=== PATIENT | female | born 1980 | race Caucasian/White ===

== ENCOUNTER 2017-09-11 19:37 | Inpatient (IN) | payer BC, OTHER ==
[~2017-09-11] VITALS: Ht 157.5 cm; Wt 82.9 kg
[2017-09-11 20:07] VITALS: Ht 157.5 cm; Wt 82.9 kg
[2017-09-11] MEDS ORDERED: OXYTOCIN 30 UNITS/LR 500 ML IV SCH (21:00)
[2017-09-11] MEDS ORDERED: OXYTOCIN 30 UNITS/LR 500 ML IV PRN (21:00)
[2017-09-11] MEDS ORDERED: METHYLERGONOVINE 0.2 MG INJ IM PRN (21:00)
[2017-09-11] MEDS ORDERED: CEFAZOLIN 2 GM/50 ML (PMX) 50 ML IV SCH (21:00)
[2017-09-11] MEDS ORDERED: CARBOPROST 250 MCG INJ IM PRN (21:00)
[2017-09-11] MEDS ORDERED: MISOPROSTOL 200 MCG TAB PR PRN (21:00)
--- NOTE | 2017-09-11 21:04 | RADRPT ---
PROCEDURE: US OB. CLINICAL INDICATION: Uncertain size and dates. TECHNIQUE: Multiple sonographic images of the uterus were obtained. The images were revi ewed on a PACS workstation. COMPARISON: No prior studies are available for comparison. FINDINGS: There is a single live intrauterine gestation. heart rate is 141 beats per minute. Measurements were made in order to determine age. The results are as follows: BPD = 8.76 cm. HC = 31.81 cm. AC = 31.34 cm. FL = 6.84 cm. Estimated weight is 2643 +/- 397 grams. LMP growth percentile is 3.5 %. Menstrual age by ultrasound dates is 35 weeks 3 days. The estimated date of delivery is 10/13/2017. Position is cephalic and placenta is posterior grade II. There is no evidence for an abruption or pl acenta previa. IMPRESSION: 1. Single live intrauterine gestation of 35 weeks 3 days menstrual age by ultrasound dates. 2. The estimated date of delivery is 10/13/2017. RPTAT: QQ .Bhanu Nelson MD, Date Time Electronically viewed and signed by .Bhanu Nelson MD, on 09/11/2017 21:04 .R/
--- NOTE | 2017-09-11 21:05 | RADRPT ---
PROCEDURE: US biophysical profile. CLINICAL INDICATION: Decreased motion. TECHNIQUE: Multiple sonographic images of the uterus were obtained. The images were revi ewed on a PACS workstation. COMPARISON: No prior studies are available for comparison. FINDINGS: There is a single live intrauterine gestation. heart rate is 136 beats per minute. The position is cephalic. The placenta is posterior grade II with no abruption or previa. The CORY is 6.3 cm. (Normal = 5-20 cm.) Breathing Movement: 2 Gross Body Movement: 2 Tone: 2 Qualitative Amniotic Fluid Volume: 2 TOTAL: 8 IMPRESSION: 1. The biophysical score is 8/8. RPTAT: QQ .Bhanu Nelson MD, MD Date Time Electronically viewed and signed by .Bhanu Nelson MD, on 09/11/2017 21:04 .R/
[2017-09-11 21:10] LABS: BASOPHILS % 0.3 % (0.0-2.0); EOSINOPHILS # 0.2 10^3/ul (0.0-0.5); EOSINOPHILS % 1.6 % (0.0-7.0); HEMATOCRIT 36.3 % (37.0-47.0); HEMOGLOBIN 12.6 g/dl (12.0-16.0); LYMPHOCYTES # 2.6 10^3/ul (0.8-2.9); LYMPHOCYTES % 22.5 % (15.0-51.0); MEAN CORPUSCULAR HEMOGLOBIN 28.4 pg (29.0-33.0); MEAN CORPUSCULAR HGB CONC 34.7 g/dl (32.0-37.0); MEAN CORPUSCULAR VOLUME 81.8 fl (82.0-101.0); MEAN PLATELET VOLUME 10.9 fl (7.4-10.4); MONOCYTES % 8.3 % (0.0-11.0); NEUTROPHIL # 7.8 10^3/ul (1.6-7.5); PLATELET COUNT 204 10^3/UL (140-415); RED BLOOD COUNT 4.44 10^6/ul (4.20-5.40); RED CELL DISTRIBUTION WIDTH 12.7 % (11.5-14.5); WHITE BLOOD COUNT 11.6 10^3/ul (4.8-10.8)
[2017-09-11 21:14] LABS: ADD UMIC YES; UR ASCORBIC ACID 40 mg/dL (NEGATIVE); UR BILIRUBIN (Dip) NEGATIVE (NEGATIVE); UR BLOOD (Dip) NEGATIVE (NEGATIVE); UR CLARITY SLIGHTLY CLOUDY (CLEAR); UR COLOR YELLOW (YELLOW); UR GLUCOSE (Dip) NEGATIVE (NEGATIVE); UR KETONES (Dip) NEGATIVE (NEGATIVE); UR LEUKOCYTE ESTERASE (Dip) 2+ Leu/ul (NEGATIVE); UR NITRITE (Dip) NEGATIVE (NEGATIVE); UR RBC 1 /HPF (0-5); UR SPECIFIC GRAVITY (Dip) 1.015 (1.003-1.030); UR SQUAMOUS EPITHELIAL CELL FEW /HPF (FEW); UR TOTAL PROTEIN (Dip) 2+ mg/dl (NEGATIVE); UR UROBILINOGEN (Dip) NEGATIVE (NEGATIVE)
[2017-09-11 21:28] LABS: INR 0.92; PROTIME 12.4 Sec (12.2-14.2)
[2017-09-11 21:29] LABS: PARTIAL THROMBOPLASTIN TIME 29.2 Sec (25.0-35.0)
[2017-09-11 21:32] LABS: ALBUMIN 3.2 g/dl (3.3-4.9); ALBUMIN/GLOBULIN RATIO 0.96; BILIRUBIN,INDIRECT 0.2 mg/dl (0-1.1); BILIRUBIN,TOTAL 0.2 mg/dl (0.2-1.3); CALCIUM 9.2 mg/dl (8.4-10.2); CREATININE 0.75 mg/dl (0.44-1.00); POTASSIUM 3.9 mmol/L (3.5-5.1); TOTAL PROTEIN 6.5 g/dl (6.1-8.1); URIC ACID 5.1 mg/dl (3.1-7.9)
[2017-09-11] MEDS: LACTATED RINGER'S 1,000 ML IV SCH (21:53)
--- NOTE | 2017-09-11 22:01 | TRIAGE ---
OB Triage Datetime Report Generated by CPN: 09/11/2017 22:00 Datetime: 09/11/2017 21:14 Vaginal Exam Membrane Status: Intact Datetime: 09/11/2017 20:09 Stage of : OB Triage Assessment Type: Triage Maternal Assessment Level of Consciousness: Fully Conscious DTR's/Clonus: DTRs 2+; No Clonus Headache: Denies Blurred Vision: No Respiratory Effort: Unlabored; Regular Rhythm; Equal Expansion Breath Sounds, Left: Clear and Equal Breath Sounds, Right: Clear and Equal Nausea/Vomiting: Denies RUQ Epigastric Pain: Denies Lower Extremities Edema: None Degree: None Upper Extremities Edema: None Degree: None Facial Edema: None Temperature Route: Oral Fall Risk Assessment History of Falling: (0) No Secondary Diagnosis: (0) No Ambulatory Aid: (0) Bedrest/Nurse Assist IV Therapy: (0) No Gait: (0) Normal/Bedrest/Immobile Mental Status: (0) Oriented to Own Ability Fall Score: 0 Fall Risk Score Definition: No Risk: No action required Labor Evaluation Monitor Mode: External Contraction Comments: No contractions at this time Heart Rate FHR Baseline Rate: 125 Monitor Mode: External US Variability: Moderate 6-25 bpm Accelerations: 15X15 Decelerations: None Category: Category I Pain Assessment Pain Scale: 0 Pain Presence: None/Denies Pain Type: N/A Pain Relief Measures: Comfort Measures Datetime: 09/11/2017 20:08 Time of Arrival: 09/11/2017 19:25 EGA: 39.0 Arrived By: Ambulatory Arrived From: Home Movement: Present Contractions: Denies/Absent Rupture of Membranes: Denies Vaginal Bleeding: None Vaginal Discharge: Denies Recent Sexual Intercouse: Denies Abdominal Trauma: Not Applicable Patient Complaints: None Time Provider Notified: 09/11/2017 20:25 Provider Notified: DAMASO Initial Plan: NST, CORY, EFW, EFA
[2017-09-11] MEDS ORDERED: MAGNESIUM SULFATE 4 GM/100 ML 100 ML ONE (22:20)
[2017-09-11] MEDS ORDERED: MAGNESIUM SULFATE 20 GM/500 ML 500 ML IV ONE (22:20)
[2017-09-11] MEDS ORDERED: MAGNESIUM SULFATE 4 GM/100 ML 100 ML IVPB ONE (22:30)
[2017-09-11] MEDS: MAGNESIUM SULFATE 20 GM/500 ML 500 ML IV SCH (23:18)
[2017-09-12] MEDS: LACTATED RINGER'S 1,000 ML IV SCH ×5 (06:49→22:02)
[2017-09-12] MEDS ORDERED: ACETAMINOPHEN 325 MG TAB PO PRN (07:00)
[2017-09-12] MEDS: MAGNESIUM SULFATE 20 GM/500 ML 500 ML IV SCH ×2 (09:38→21:11)
[2017-09-12] MEDS ORDERED: morphine SULFATE/PF (10 MG/10 ML) INJ ONE (12:00)
[2017-09-12] MEDS ORDERED: FENTAnyl 50 MCG/ML VIAL ONE (12:00)
[2017-09-12] MEDS ORDERED: ONDANSETRON 4 MG INJ ONE (12:05)
[2017-09-12] MEDS ORDERED: DEXAMETHASONE 4 MG/ML 1 ML INJ ONE (12:05)
[2017-09-12] MEDS ORDERED: PHENYLephrine (100 MCG/ML) 5ML SYG ONE (12:15)
--- NOTE | 2017-09-12 14:02 | SIPON ---
Date/Time of Note Date/Time of Note DATE: 09/12/17 TIME: 13:59 Operative Report Preoperative Diagnosis 39 WEEKS IUP PREVIOUS CSECTION INDUCED HYPERTENSION MULTIPARITY PATIENT DESIRES BTL Postoperative Diagnosis 39 WEEKS IUP PREVIOUS CSECTION INDUCED HYPERTENSION MULTIPARITY PATIENT DESIRES BTL Operation/Procedure Performed REPEAT LOW TRANSVERSE SECTION Surgeon see signature line orthodontic technician assistant DR ALEXANDER Anesthesia: spinal Estimated blood loss: other Transfusion Required none Specimen PLACENTA PORTION OF BOTH TUBES Grafts/Implants none Complications none VISH PETIT MD Sep 12, 2017 14:02
[2017-09-12] MEDS ORDERED: MISOPROSTOL 200 MCG TAB PR PRN (14:30)
[2017-09-12] MEDS ORDERED: CEFAZOLIN 1 GM/50 ML (PMX) 50 ML IV ONE (14:30)
[2017-09-12] MEDS ORDERED: METHYLERGONOVINE 0.2 MG TAB PO PRN (14:30)
[2017-09-12] MEDS ORDERED: LANOLIN 7 GM TUBE TOP PRN (14:30)
[2017-09-12] MEDS ORDERED: CARBOPROST 250 MCG INJ IM PRN (14:30)
[2017-09-12] MEDS ORDERED: OXYTOCIN 30 UNITS/LR 500 ML IV PRN (14:30)
[2017-09-12] MEDS ORDERED: METHYLERGONOVINE 0.2 MG INJ IM PRN (14:30)
[2017-09-12] MEDS ORDERED: HYDROCODONE/APAP (5/325) TAB PO PRN (14:30)
[2017-09-12] MEDS ORDERED: OXYCODONE/ACETAMINOPHEN (5/325) TAB PO PRN (14:30)
[2017-09-12] MEDS ORDERED: NALOXONE (0.4 MG/ML) INJ IV PRN (15:00)
[2017-09-12] MEDS ORDERED: morphine 2 MG INJ IV PRN (15:00)
[2017-09-12] MEDS ORDERED: ONDANSETRON 4 MG INJ IV PRN (15:00)
[2017-09-12] MEDS ORDERED: DIPHENHYDRAMINE 50 MG INJ IV PRN (15:00)
[2017-09-12] MEDS ORDERED: KETOROLAC 30 MG INJ IV PRN (15:00)
[2017-09-12] MEDS ORDERED: ZOLPIDEM 5 MG TAB PO PRN (15:00)
[2017-09-12] MEDS ORDERED: morphine 4 MG/ML VIAL IV PRN (15:00)
[2017-09-12] MEDS ORDERED: MAGNESIUM SULFATE 2 GM/50 ML 50 ML IVPB SCH (15:00)
[2017-09-12] MEDS: OXYTOCIN 30 UNITS/LR 500 ML IV SCH ×2 (18:15→21:10)
[2017-09-12 18:22] VITALS: BP 125/77; PULSE 58; RESP 16
[2017-09-12 19:30] VITALS: BP 126/79; PULSE 63; RESP 18
[2017-09-12 20:30] VITALS: BP 119/75; RESP 20
[2017-09-12] MEDS: SENNA/DOCUSATE NA (8.6MG/50MG) TAB PO SCH (21:00)
[2017-09-12 21:30] VITALS: BP 121/72; PULSE 57; RESP 18
[2017-09-12 22:30] VITALS: BP 112/70; RESP 18
[2017-09-12 23:30] VITALS: BP 109/68; RESP 18
[2017-09-13] MEDS: LACTATED RINGER'S 1,000 ML IV SCH ×2 (02:04→06:02)
[2017-09-13 04:05] VITALS: BP 108/66; PULSE 66; RESP 18
[2017-09-13] MEDS: SENNA/DOCUSATE NA (8.6MG/50MG) TAB PO SCH ×2 (08:09→21:48)
[2017-09-13 08:24] VITALS: BP 100/68; PULSE 57; RESP 16
[2017-09-13 08:24] LABS: BASOPHILS % 0.2 % (0.0-2.0); HEMATOCRIT 33.3 % (37.0-47.0); HEMOGLOBIN 11.3 g/dl (12.0-16.0); LYMPHOCYTES # 1.9 10^3/ul (0.8-2.9); LYMPHOCYTES % 12.4 % (15.0-51.0); MEAN CORPUSCULAR HEMOGLOBIN 28.1 pg (29.0-33.0); MEAN CORPUSCULAR HGB CONC 33.9 g/dl (32.0-37.0); MEAN CORPUSCULAR VOLUME 82.8 fl (82.0-101.0); MEAN PLATELET VOLUME 11.1 fl (7.4-10.4); MONOCYTE # 0.9 10^3/ul (0.3-0.9); MONOCYTES % 5.6 % (0.0-11.0); NEUTROPHIL # 12.8 10^3/ul (1.6-7.5); NEUTROPHILS % 81.4 % (39.0-77.0); PLATELET COUNT 199 10^3/UL (140-415); RED BLOOD COUNT 4.02 10^6/ul (4.20-5.40); RED CELL DISTRIBUTION WIDTH 12.7 % (11.5-14.5); WHITE BLOOD COUNT 15.7 10^3/ul (4.8-10.8)
[2017-09-13 08:46] LABS: CALCIUM 6.9 mg/dl (8.4-10.2); CREATININE 0.84 mg/dl (0.44-1.00); POTASSIUM 4.6 mmol/L (3.5-5.1)
[2017-09-13 12:40] VITALS: BP 113/70; PULSE 57; RESP 16
[2017-09-13] MEDS ORDERED: BISACODYL 10 MG SUPP PR ONE (17:00)
[2017-09-13] MEDS ORDERED: MAGNESIUM HYDROXIDE 30ML CUP PO ONE (17:00)
[2017-09-13] MEDS: IBUPROFEN 800 MG TAB PO SCH (18:42)
[2017-09-13 20:00] VITALS: BP 110/62; PULSE 70; RESP 20
[2017-09-13] MEDS: HYDROCODONE/APAP (5/325) TAB PO PRN (21:48)
[2017-09-14 05:02] VITALS: BP 121/77; PULSE 75; RESP 20
[2017-09-14] MEDS: IBUPROFEN 800 MG TAB PO SCH ×3 (05:27→21:33)
[2017-09-14] MEDS: HYDROCODONE/APAP (5/325) TAB PO PRN ×2 (05:28→19:58)
[2017-09-14 08:50] VITALS: BP 129/72; PULSE 52; RESP 14
[2017-09-14] MEDS: SENNA/DOCUSATE NA (8.6MG/50MG) TAB PO SCH ×2 (09:23→21:33)
[2017-09-14 12:23] VITALS: BP 134/84; PULSE 53; RESP 16
[2017-09-14 16:06] VITALS: BP 131/78; PULSE 50; RESP 16
[2017-09-14 19:59] VITALS: BP 135/83; PULSE 55; RESP 18
[2017-09-15 04:00] VITALS: BP 130/77; PULSE 50; RESP 17
[2017-09-15] MEDS: IBUPROFEN 800 MG TAB PO SCH (05:40)
[2017-09-15 07:30] VITALS: BP 131/75; PULSE 67; RESP 19
[2017-09-15] MEDS ORDERED: MEASLES,MUMPS,RUBELLA VACCINE INJ SC* ONE (09:00)
[2017-09-15] MEDS ORDERED: DIPHTH/TET/ACEL PERTUSS (ADULT) 0.5 ML VIAL IM* ONE (09:00)
[2017-09-15] MEDS: SENNA/DOCUSATE NA (8.6MG/50MG) TAB PO SCH (09:00)
[2017-09-15 10:32] LABS: BASOPHIL # 0.1 10^3/ul (0.0-0.1); BASOPHILS % 0.5 % (0.0-2.0); EOSINOPHILS # 0.2 10^3/ul (0.0-0.5); EOSINOPHILS % 1.7 % (0.0-7.0); HEMATOCRIT 37.7 % (37.0-47.0); HEMOGLOBIN 12.5 g/dl (12.0-16.0); LYMPHOCYTES # 1.8 10^3/ul (0.8-2.9); LYMPHOCYTES % 16.8 % (15.0-51.0); MEAN CORPUSCULAR HGB CONC 33.2 g/dl (32.0-37.0); MEAN CORPUSCULAR VOLUME 84.5 fl (82.0-101.0); MEAN PLATELET VOLUME 10.7 fl (7.4-10.4); MONOCYTE # 0.6 10^3/ul (0.3-0.9); MONOCYTES % 5.4 % (0.0-11.0); NEUTROPHIL # 8.2 10^3/ul (1.6-7.5); NEUTROPHILS % 75.2 % (39.0-77.0); PLATELET COUNT 231 10^3/UL (140-415); RED BLOOD COUNT 4.46 10^6/ul (4.20-5.40); RED CELL DISTRIBUTION WIDTH 13.1 % (11.5-14.5); WHITE BLOOD COUNT 10.9 10^3/ul (4.8-10.8)
--- NOTE | 2017-09-16 07:12 | OPR ---
DATE OF OPERATION: 09/11/2017 PREOPERATIVE DIAGNOSES: 1. Thirty-nine weeks' intrauterine with previous section. 2. Previous section. 3. Multiparity. 4. Desires tubal ligation. 5. -induced hypertension. POSTOPERATIVE DIAGNOSES: 1. Thirty-nine weeks' intrauterine with previous section. 2. Previous section. 3. Multiparity. 4. Desires tubal ligation. 5. -induced hypertension. OPERATION PERFORMED: Repeat low-transverse section plus bilateral tubal ligation. SURGEON: Dr. Dewey. SUPPORT CLERK: Dr. Carrera. ANESTHESIA: Spinal. ANESTHESIOLOGIST: Dr. Rivers. OPERATIVE PROCEDURE: Under spinal anesthesia, the patient was prepped and draped in the usual fashion for abdominal surgery. After checking for the effect of the anesthesia, the previous Pfannenstiel scar was excised. A 12 cm skin incision was performed. The incision was carried from the skin up to the fascia. Upon opening the skin up to the fascia, small blood vessels were noted to be oozing and these were all cauterized. Fascia was opened transversely, followed by splitting the muscles vertical and the peritoneum vertically. Upon opening the abdominal cavity, the bladder blade was put in place. A small cece was performed from the serosa up to the endometrium and the lower uterine segment and the cece was carried sidewise with the aid of my 2 fingers. My left hand was inserted in the lower segment of the uterus and the bag of water was ruptured. Clear fluid was noted. The baby's head was delivered with good fundal pressure, the baby's surface was quickly suctioned of amniotic fluid. Then the anterior shoulder, posterior shoulder and rest of the body of the baby was delivered. Then the cord was clamped after 30 seconds, and the baby was handed to the NICU team. The placenta was delivered manually and complete. Cord blood was obtained. The uterus was exteriorized. The uterus was cleansed with wet lap sponges to make sure that no membranes were left behind. After correct sponge count, the uterus was closed in the usual fashion using #1 chromic for the 1st layer, continuous locking suture was used followed by #1 chromic for the 2nd layer, imbricating sutures were used. Bleeders were checked and there was no bleeding noted. After checking for any bleeders, in which there were none, both tubes and ovaries were inspected. They were healthy looking. The back of the uterus was checked for any hematoma, and there was none noted. Then the right tube was grasped in the center where the avascular area was. A 1 cm tube was stick tied at the proximal and distal portion with 2-0 silk. The stick-tie with 2-0 chromic above the 1st silk tie and another free-tie with 2-0 chromic above the 2nd tie. The right tube was cut, and the ends were cauterized. The right fimbria was identified. Same thing was done on the left side. About 1 cm of tube was transected on both tubes. The left fimbria was identified. Then bleeders were checked and there was no bleeding noted. The uterus was put back into the pelvic cavity. Once again, uterine incision was checked for any bleeders and there was no bleeding noted. After correct sponge count, needle count, and instrument count as confirmed by the upholstery tech and consultant dietitian, the abdomen was closed in the usual fashion using 0 Vicryl for the peritoneum, 0 Vicryl for the muscles, for the fascia 0 Vicryl continuous stitch was used followed by a few [id number] sutures for the subcutaneous tissue, which was closed with 3-0 Vicryl and the skin was closed with 3-0 Vicryl, subcuticular suture was used. The patient tolerated the procedure well. ESTIMATED BLOOD LOSS: About 600 cc. Vital signs were stable during and after the procedure. She delivered a healthy baby girl, Apgars 8, 9 at 12:34 p.m., September 12, 2017, weighing 5 pounds 11 ounces, 18-1/2 inches long. Dictated By: Sabrina Dewey MD /lola/hema /Document#: [id number]
== END 2017-09-15 14:05 | disposition home or self-care (01) | DRG 766 ==
LOC: L-D 19:37 → OBT 19:37 → L-D 21:10 → OBT 21:10 → L-D 09-12 12:06 → PP1 09-12 17:55
PROVIDERS: ADMIT Obstetrics & Gynecology; ATTEND Obstetrics & Gynecology
PROC: 10D00Z1 Extraction of Products of Conception, Low, Open Approach (ICD-10-PCS; principal; 2017-09-11)
PROC: 0UL70ZZ Occlusion of Bilateral Fallopian Tubes, Open Approach (ICD-10-PCS; 2017-09-11)
PROC: 3E0P3VZ Introduction of Hormone into Female Reproductive, Percutaneous Approach (ICD-10-PCS; 2017-09-11)
DX: O34.211 Maternal care for low transverse scar from previous cesarean delivery (principal); Z30.2 Encounter for sterilization; O13.4 Gestational [pregnancy-induced] hypertension without significant proteinuria, complicating childbirth; Z37.0 Single live birth; Z3A.39 39 weeks gestation of pregnancy
CPT/HCPCS: 76815; 76818; 80048; 80053; 81001; 83735; 84560; 85025; 85610; 85730; 86592; 86850; 86900; 86901; 88302; 90715; 94760; 99464; G0463; J0690; J1100; J1885; J2274; J2370; J2405; J2590; J3010; J3475; J7120